=== PATIENT | female | born 1990 | race American Indian/Alaskan Native ===

== ENCOUNTER 2017-06-25 19:56 | Emergency (ER) | payer OTHER ==
[2017-06-25 19:56] VITALS: BMI 19.5
[2017-06-25 20:44] LABS: BASO % 0.7 % (0.0-2.0); EOS # 0.1 K/uL (0.0-0.7); HEMOGLOBIN 12.2 g/dL (11.0-16.0); LYMPH # 1.3 K/uL (1.0-4.3); LYMPH % 17.5 % (20.0-40.0); MEAN CELL VOLUME 70.9 fL (81.0-99.0); MEAN CORPUSCULAR HEMOGLOBIN 23.6 pg (27.0-31.0); MEAN CORPUSCULAR HGB CONC 33.3 g/dL (33.0-37.0); MEAN PLATELET VOLUME 7.9 fL (7.2-11.7); MONO # 0.8 K/uL (0.0-0.8); MONO % 11.1 % (0.0-10.0); NEUT # 5.1 K/uL (1.8-7.0); NEUT % 69.7 % (50.0-75.0); RBC 5.18 Mil/uL (3.80-5.20); RED CELL DISTRIBUTION WIDTH 14.8 % (11.5-14.5); WHITE BLOOD COUNT 7.3 K/uL (4.8-10.8)
[2017-06-25] MEDS ORDERED: Sodium Chloride 0.9% 1,000 ML IV ONE (20:46)
[2017-06-25 20:50] LABS: SQUAMOUS EPITHIAL 4 /hpf (0-5)
[2017-06-25 20:57] LABS: ALB/GLOB RATIO 1.1 (1.0-2.1); ALT/SGPT 24 U/L (9-52); AST/SGOT 18 U/L (14-36); BLOOD UREA NITROGEN 8 mg/dL (7-17); GFR AFRICAN-AMERICAN > 60; GFR NON-AFRICAN AMERICAN > 60
[2017-06-25 20:58] LABS: PH,URINE 6.5 (5.0-8.0); URINE BILIRUBIN NEGATIVE (NEGATIVE); URINE BLOOD NEGATIVE (NEGATIVE); URINE CLARITY CLEAR (Clear); URINE COLOR YELLOW (YELLOW); URINE GLUCOSE (UA) NEGATIVE (Normal); URINE LEUKOCYTE ESTERASE 1+ Leu/uL (Negative); URINE NITRATE NEGATIVE (NEGATIVE); URINE PROTEIN NEGATIVE (NEGATIVE); URINE UROBILINOGEN 0.2 mg/dL (0.2-1.0)
--- NOTE | 2017-06-25 21:09 | C.PDOC ---
History Of Present Illness Patient is a 27 y/o female who presents to the ED with a complaint of persistent nausea associated with intermittent lower abdominal pain since Friday. Patient describes abdominal pain as crampy and rates pain 4/10. Patient last at food at 6 pm, but denies trying any new foods in diet. Admits to using milk of magnesia intermittently with some relief, but nausea persists after time ; denies vomiting, constipation, diarrhea, recent travel, fever, leg pain, SOB, CP, or vaginal bleeding or discharge. Patient admits receiving the Flu shot in March. Denies any surgeries, medications, or allergies. Patient has a PMHx of anemia and received a blood transfusion at 17 y/o. Patient has no other physical complaints at this time. Time Seen by Provider: 06/25/17 20:34 Chief Complaint (Nursing): Abdominal Pain History Per: Patient History/Exam Limitations: no limitations Onset/Duration Of Symptoms: Days (since Friday) Current Symptoms Are (Timing): Still Present Severity: Moderate Pain Scale Rating Of: 4 Location Of Pain/Discomfort: Suprapubic Quality Of Discomfort: Cramping Associated Symptoms: Nausea. denies: Fever, Vomiting, Diarrhea, Chest Pain, Constipation, Urinary Symptoms Recent travel outside of the [place]: No Additional History Per: Patient Past Medical History Reviewed: Historical Data, Nursing Documentation, Vital Signs Vital Signs: Last Vital Signs Temp 98.7 F 06/26/17 00:15 Pulse 68 06/26/17 00:15 Resp 18 06/26/17 00:15 BP 107/67 06/26/17 00:15 Pulse Ox 98 06/26/17 00:15 - Medical History PMH: Anemia Denies: Depression Surgical History: No Surg Hx Family History: States: No Known Family Hx - Social History Hx Tobacco Use: No Hx Alcohol Use: Yes (drinks wine occasionally on weekends) Hx Substance Use: No Review Of Systems Constitutional: Negative for: Fever Cardiovascular: Negative for: Chest Pain Respiratory: Negative for: Shortness of Breath Gastrointestinal: Positive for: Nausea, Abdominal Pain (lower abdominal pain). Negative for: Vomiting, Diarrhea, Constipation Genitourinary: Negative for: Dysuria, Frequency, Vaginal Discharge, Vaginal Bleeding Musculoskeletal: Negative for: Leg Pain Physical Exam - Physical Exam Appears: Well, Non-toxic, No Acute Distress Skin: Warm, Dry Head: Normacephalic Eye(s): bilateral: PERRL, EOMI Oral Mucosa: Moist Chest: Symmetrical Cardiovascular: Rhythm Regular, No Murmur Respiratory: No Accessory Muscle Use, No Rales, No Rhonchi, No Wheezing Gastrointestinal/Abdominal: Soft, No Tenderness Extremity: No Pedal Edema Neurological/Psych: Oriented x3 ED Course And Treatment - Laboratory Results Result Diagrams: 06/25/17 20:36 06/25/17 20:36 O2 Sat by Pulse Oximetry: 100 (room air) Pulse Ox Interpretation: Normal Progress Note: HCG urine and blood work ordered. Zofran and IV fluids administered. HCG urine positive; patient notified. Reevaluation Time: 02:21 Reassessment Condition: Improved Disposition Counseled Patient/Family Regarding: Studies Performed, Diagnosis, Need For Followup - Disposition Referrals: [facility] [Outside] [facility] [Outside] Disposition: HOME/ ROUTINE Disposition Time: 01:00 Condition: FAIR Instructions: (ED), Abdominal Pain in (ED) Forms: [employer] (Japanese) - Clinical Impression Clinical Impression: , Abdominal pain affecting - Scribe Statement The provider has reviewed the documentation as recorded by the Scribe Teressa Banks All medical record entries made by the Scribe were at my direction and personally dictated by me. I have reviewed the chart and agree that the record accurately reflects my personal performance of the history, physical exam, medical decision making, and the department course for this patient. I have also personally directed, reviewed, and agree with the discharge instructions and disposition.
[2017-06-25] MEDS ORDERED: Sodium Chloride 0.9% 1,000 ML ONE (23:06)
--- NOTE | 2017-06-26 02:17 | US ---
EXAM: US First Trimester, Transabdominal CLINICAL HISTORY: 27 years old, female; Signs and symptoms; Lmp or gestational age (in weeks): 6wks; Antepartum complications; Other: Nausea; ; Additional info: Abd pain, hcg 72090 TECHNIQUE: Real-time transabdominal obstetrical ultrasound of the maternal pelvis and a first trimester with image documentation. COMPARISON: No relevant prior studies available. FINDINGS: Gestation: Single live intrauterine gestation. heart rate of 118 beats per minute. Tarina-rump length of 0.3 cm, correlating with gestational age of 6 weeks 0 days. Uterus/cervix: Retroverted uterus. No subchorionic hemorrhage. No cervical dilatation or effacement. Ovaries: Normal ovaries. No adnexal masses. Free fluid: Trace free fluid within pelvis. IMPRESSION: 1. Single live intrauterine gestation. 2. Incidental/non-acute findings are described above. EXAM: US , Transvaginal CLINICAL HISTORY: 27 years old, female; Signs and symptoms; Lmp or gestational age (in weeks): 6wks; Antepartum complications; Other: Nausea; ; Additional info: Abd pain, hcg 47979 TECHNIQUE: Real-time transvaginal obstetrical ultrasound of the maternal pelvis and a first trimester with image documentation. Transvaginal imaging was used for better evaluation of the fetus and adnexa. COMPARISON: No relevant prior studies available. FINDINGS: Gestation: Single live intrauterine gestation. heart rate of 118 beats per minute. Tarina-rump length of 0.3 cm, correlating with gestational age of 6 weeks 0 days. Uterus/cervix: Retroverted uterus. No subchorionic hemorrhage. No cervical dilatation or effacement. Ovaries: Normal ovaries. No adnexal masses. Free fluid: Trace free fluid within pelvis.
[2017-06-26 02:22] VITALS: O2SAT 100
[2017-06-26 02:43] VITALS: BP 108/73; PULSE 70; RESP 20; TEMP 99
== END 2017-06-26 02:42 | disposition home or self-care (01) ==
LOC: C.ER 19:56
DX: O26.891 Other specified pregnancy related conditions, first trimester (principal); Z3A.01 Less than 8 weeks gestation of pregnancy; R10.30 Lower abdominal pain, unspecified
CPT/HCPCS: 76805; 76817; 80053; 81001; 84702; 84703; 85025; 86850; 86900; 96361; 96374; 99284; J2405; J7040